=== PATIENT | female | born 1945 | race Caucasian/White ===

== ENCOUNTER 2024-03-25 17:23 | Inpatient (IN) ==
[2024-03-25 19:33] LABS: Urine Appearance Turbid; Urine Bilirubin Negative (Negative); Urine Blood Trace (Negative); Urine Color Yellow; Urine Glucose Negative (Negative); Urine Ketones Negative (Negative); Urine Nitrite 1+ (Negative); Urine Protein Negative (Negative); Urine Specific Gravity 1.015 (1.002-1.030); Urine Urobilinogen Negative (Negative)
[2024-03-25 19:36] LABS: Urine Bacteria 1+ /HPF (Absent); Urine Red Blood Cell Trace(0-2/hpf) /HPF (0-Trace); Urine Squamous Epithelial Cell Present /HPF (Absent); Urine White Blood Cell 3+(>20/hpf) /HPF (0-Trace)
[2024-03-25 20:06] LABS: ABS Basophils 0.1 10^3/uL (0.0-0.1); ABS Lymphocytes 0.4 10^3/uL (1.0-4.8); ABS Monocytes 0.5 10^3/uL (0.0-0.9); Eosinophil % 0.1 %; Hematocrit 30.4 % (35-45); Hemoglobin 10.2 g/dL (11.5-14.3); Lymphocyte % 5.5 %; Mean Corpuscular Hemoglobin 34.9 pg (27-33); Mean Corpuscular Hgb Conc 33.6 g/dL (31-36); Mean Corpuscular Volume 103.9 fL (80-97); Mean Platelet Volume 8.1 fL (7.5-11.2); Platelet Count 145 10^3/uL (150-450); Red Blood Count 2.93 10^6/uL (3.63-4.92); Red Cell Distribution Width 17.3 % (12-17); White Blood Count 6.9 10^3/uL (3.8-11.8)
[2024-03-25 20:22] LABS: Activated Partial Thrombo Time 27.7 seconds (26.0-38.0); INR 1.08 (0.83-1.13)
[2024-03-25 20:44] LABS: ALT 14 U/L (7-52); Albumin 3.4 g/dL (3.2-5.2); Albumin/Globulin Ratio 1.2 (1-3); Alkaline Phosphatase 90 U/L (35-149); Anion Gap 8 mmol/L (2-16); Blood Urea Nitrogen 16 mg/dL (6-24); CO2 Carbon Dioxide 26 mmol/L (22-32); Calcium 8.6 mg/dL (8.6-10.3); Chloride 104 mmol/L (101-111); Creatinine, Serum 0.83 mg/dL (0.51-0.95); Globulin 2.9 g/dL (2-4); Glucose 125 mg/dL (70-100); Sodium 138 mmol/L (135-145); Total Bilirubin 0.7 mg/dL (0.2-1.0); Total Protein 6.3 g/dL (6.4-8.9)
[2024-03-25] MEDS: Heparin 5000 UNITS/ML 1 mL VIAL IV SCH (21:02)
[2024-03-25] MEDS: Heparin DRIP 25,000 UNITS BAG 25,000 UNITS/250 ML BAG IV SCH (21:03)
[2024-03-25] MEDS: TEMOZOLOMIDE 250 MG PO ONE (23:00)
[2024-03-26] MEDS ORDERED: cefTRIAXone 1 gm/50 mL D5W 1 GM/50 ML BAG IV ONE (00:51)
[2024-03-26] MEDS: cefTRIAXone 1 gm/50 mL D5W 1 GM/50 ML BAG IV SCH (00:56)
[2024-03-26 04:32] LABS: ABS Lymphocytes 0.8 10^3/uL (1.0-4.8); ABS Monocytes 0.5 10^3/uL (0.0-0.9); ABS Neutrophils 4.9 10^3/uL (1.5-7.6); ABS Nucleated RBC 0.01 10^3/ul; Eosinophil % 0.6 %; Hematocrit 29.5 % (35-45); Hemoglobin 9.9 g/dL (11.5-14.3); Lymphocyte % 13.3 %; Mean Corpuscular Hemoglobin 34.6 pg (27-33); Mean Corpuscular Hgb Conc 33.6 g/dL (31-36); Mean Corpuscular Volume 103.1 fL (80-97); Mean Platelet Volume 8.2 fL (7.5-11.2); Nucleated Red Blood Cells % 0.2 %/100WBC (0.0-0.8); Platelet Count 147 10^3/uL (150-450); Red Blood Count 2.86 10^6/uL (3.63-4.92); Red Cell Distribution Width 17.4 % (12-17); White Blood Count 6.3 10^3/uL (3.8-11.8)
[2024-03-26 05:31] LABS: Calcium 8.5 mg/dL (8.6-10.3); Creatinine, Serum 0.81 mg/dL (0.51-0.95); Magnesium 1.8 mg/dL (1.9-2.7); Potassium 3.4 mmol/L (3.5-5.0); Potassium Redraw 3.4 mmol/L (3.5-5.0); eGFR CKD-EPI 75.2 (>60)
[2024-03-26] MEDS ORDERED: Potassium Chlor 20 meq TAB.ER PO SCH (09:00)
[2024-03-26] MEDS: CMCS: Solifenacin 5 mg TAB (NF) PO SCH (09:48)
[2024-03-26] MEDS: Fluticasone NASAL SPRAY 50MCG 16 gm SPRAY BTL INTRANASAL SCH (13:26)
[2024-03-26] MEDS: Polyethylene Glycol 3350 17 GM PACKET PO PRN (20:35)
[2024-03-27 07:49] LABS: ABS Eosinophils 0.1 10^3/uL (0.0-0.5); ABS Lymphocytes 0.9 10^3/uL (1.0-4.8); ABS Monocytes 0.4 10^3/uL (0.0-0.9); ABS Neutrophils 2.8 10^3/uL (1.5-7.6); Eosinophil % 1.8 %; Hemoglobin 8.9 g/dL (11.5-14.3); Mean Corpuscular Hemoglobin 35.1 pg (27-33); Mean Corpuscular Hgb Conc 34.2 g/dL (31-36); Mean Corpuscular Volume 102.6 fL (80-97); Mean Platelet Volume 7.5 fL (7.5-11.2); Platelet Count 174 10^3/uL (150-450); Red Blood Count 2.53 10^6/uL (3.63-4.92); Red Cell Distribution Width 16.8 % (12-17); White Blood Count 4.3 10^3/uL (3.8-11.8)
[2024-03-27] MEDS ORDERED: Lidocaine 1% VIAL 10 MG/ML 30 ML VIAL ONE ×2 (08:08→11:44)
[2024-03-27] MEDS ORDERED: Iohexol 350 (CONTRAST) 100 ML PAK IV ONE ×3 (08:09→12:00)
[2024-03-27] MEDS ORDERED: Heparin 2 UNITS/ML IVPREMIX 3,000 UNIT/1,500 ML BAG IV ONE ×2 (08:09→11:44)
[2024-03-27] MEDS ORDERED: fentaNYL 250 mcg/5 ml 50 MCG/ML 5 ml VIAL (250 MCG) ONE (08:11)
[2024-03-27] MEDS ORDERED: Heparin 1,000 UNIT/ML 10 ml (10,000 UNITS) CATHLAB/DIALYSIS ONE ×2 (08:11→13:38)
[2024-03-27] MEDS ORDERED: Midazolam 5 mg/5 ml VIAL 1 mg/ml 5 ml VIAL (5 mg) ONE (08:11)
[2024-03-27 08:42] LABS: Calcium 7.9 mg/dL (8.6-10.3); Creatinine, Serum 0.62 mg/dL (0.51-0.95); Magnesium 1.8 mg/dL (1.9-2.7); Potassium 3.5 mmol/L (3.5-5.0); eGFR CKD-EPI 92.2 (>60)
[2024-03-27 11:17] LABS: Hematocrit 26.4 % (35-45); Hemoglobin 8.3 g/dL (11.5-14.3); Mean Corpuscular Hgb Conc 31.6 g/dL (31-36); Platelet Count 137 10^3/uL (150-450); Red Blood Count 2.39 10^6/uL (3.63-4.92); Red Cell Distribution Width 18.4 % (12-17); White Blood Count 7.3 10^3/uL (3.8-11.8)
[2024-03-27 11:19] LABS: INR 1.23 (0.83-1.13)
[2024-03-27] MEDS: Iohexol 350 (CONTRAST) 500 ML MDV IV ONE (11:26)
[2024-03-27 11:38] LABS: High Sens Troponin Baseline 27 pg/mL (<15)
[2024-03-27 12:45] LABS: ALT 115 U/L (7-52); Albumin 2.3 g/dL (3.2-5.2); Albumin/Globulin Ratio 1.2 (1-3); Alkaline Phosphatase 73 U/L (35-149); Anion Gap 17 mmol/L (2-16); Blood Urea Nitrogen 12 mg/dL (6-24); CO2 Carbon Dioxide 15 mmol/L (22-32); Calcium 7.6 mg/dL (8.6-10.3); Chloride 106 mmol/L (101-111); Creatinine, Serum 0.84 mg/dL (0.51-0.95); Glucose 277 mg/dL (70-100); Sodium 138 mmol/L (135-145); Total Bilirubin 0.4 mg/dL (0.2-1.0); Total Protein 4.3 g/dL (6.4-8.9)
[2024-03-27 12:55] LABS: ABS Basophils 0.1 10^3/uL (0.0-0.1); ABS Eosinophils 0.1 10^3/uL (0.0-0.5); ABS Lymphocytes 4.4 10^3/uL (1.0-4.8); ABS Monocytes 0.3 10^3/uL (0.0-0.9); ABS Neutrophils 2.5 10^3/uL (1.5-7.6); ABS Nucleated RBC 0.07 10^3/ul; Acanthocytes 2+; Eosinophil % 0.8 %; Lymphocyte % 59.9 %; Macrocytosis 3+; Mean Corpuscular Volume 110.8 fL (80-97); Polychromasia 1+; Smudge Cells Present; Tear Drop Cells 1+
[2024-03-27] MEDS: VASOPRESSIN IVPREMIX BTL 40 UNIT/100 ML BTL IV SCH (13:45)
[2024-03-27] MEDS: PHENYLEPHRINE DRIP IVPREMIX 50 MG/250 ML BAG IV SCH (14:00)
[2024-03-27] MEDS ORDERED: Heparin 2 UNITS/ML IVPREMIX 1,000 UNIT/500 ML BAG IV ONE (14:04)
[2024-03-27] MEDS: Norepinephrine 4 MG/250mL D5W 4,000 MCG/250 ML BAG IV SCH (16:00)
[2024-03-27 16:29] LABS: ABS Lymphocytes 1.6 10^3/uL (1.0-4.8); ABS Monocytes 0.6 10^3/uL (0.0-0.9); ABS Neutrophils 9.7 10^3/uL (1.5-7.6); ABS Nucleated RBC 0.11 10^3/ul; Eosinophil % 0.2 %; Hematocrit 24.6 % (35-45); Hemoglobin 7.8 g/dL (11.5-14.3); Lymphocyte % 13.3 %; Mean Corpuscular Hemoglobin 33.7 pg (27-33); Mean Corpuscular Hgb Conc 31.9 g/dL (31-36); Mean Corpuscular Volume 105.7 fL (80-97); Mean Platelet Volume 7.7 fL (7.5-11.2); Nucleated Red Blood Cells % 0.9 %/100WBC (0.0-0.8); Platelet Count 120 10^3/uL (150-450); Red Blood Count 2.32 10^6/uL (3.63-4.92)
[2024-03-27] MEDS: VASOPRESSIN IVPREMIX BTL 40 UNIT/100 ML BTL IV ONE (16:37)
[2024-03-27] MEDS: Propofol 10 mg/ml 100 ML BTL 1,000 MG/100 ML BTL ONE (16:37)
[2024-03-27] MEDS: Phenylephrine IV 10 MG/ML 1 ml VIAL ONE (16:37)
[2024-03-27] MEDS: Propofol 10 mg/ml 100 ML BTL 0 MG/0 ML BTL ONE (16:37)
[2024-03-27] MEDS ORDERED: Acetaminophen IV 1 GM/100ML 1,000 MG/100 ML BAG IV PRN (16:37)
[2024-03-27] MEDS: Propofol 10 mg/ml 100 ML BTL 1,000 MG/100 ML BTL IV SCH (16:54)
[2024-03-27] MEDS ORDERED: Propofol 10 mg/ml 100 ML BTL 1,000 MG/100 ML BTL IV SCH (17:00)
[2024-03-27 17:10] LABS: PCO2 Arterial 29 mmHg (35-45); PO2 Arterial 215 mmHg (80-100)
[2024-03-27] MEDS: Chlorhexidine MOUTHWASH 0.12% 15 ML UDC SWISH SPIT SCH (17:43)
[2024-03-27] MEDS: Sodium Bicarbonate 8.4% SYR 50 ml SYRINGE ONE (17:46)
[2024-03-27] MEDS: Sodium Bicarbonate 8.4% SYR 50 ml SYRINGE IV ONE (17:48)
[2024-03-27] MEDS: Sodium Bicarbonate 8.4% VIAL 1 MEQ/ML 50 ml VIAL (50 meq) ONE (17:49)
[2024-03-27] MEDS: Norepinephrine *QUAD STRENGTH* 16 mg/250 mL NS PREMIX (ICU ONLY) IV SCH (18:36)
[2024-03-27 18:40] LABS: High Sensitivity Troponin 1 Hr 2842 pg/mL (<15)
[2024-03-27 19:09] LABS: ALT 82 U/L (7-52); AST 221 U/L (13-39); Albumin < 1.7 g/dL (3.2-5.2); Albumin/Globulin Ratio 1.3 (1-3); Alkaline Phosphatase 61 U/L (35-149); Anion Gap 16 mmol/L (2-16); Blood Urea Nitrogen 13 mg/dL (6-24); CO2 Carbon Dioxide 33 mmol/L (22-32); Calcium 6.3 mg/dL (8.6-10.3); Chloride 100 mmol/L (101-111); Creatinine, Serum 0.98 mg/dL (0.51-0.95); Globulin 1.3 g/dL (2-4); Glucose 428 mg/dL (70-100); Potassium 3.7 mmol/L (3.5-5.0); Sodium 149 mmol/L (135-145); Total Bilirubin 0.5 mg/dL (0.2-1.0); Total Protein < 3.0 g/dL (6.4-8.9); eGFR CKD-EPI 59.8 (>60)
[2024-03-27] MEDS: Hydrocortisone INJ 100 MG/2ML 2 ML VIAL IV SCH (19:29)
[2024-03-27] MEDS ORDERED: Hydrocortisone INJ 100 MG/2ML 2 ML VIAL IV SCH (20:00)
[2024-03-27 20:51] LABS: ABS Eosinophils 0.1 10^3/uL (0.0-0.5); ABS Lymphocytes 1.2 10^3/uL (1.0-4.8); ABS Monocytes 0.6 10^3/uL (0.0-0.9); ABS Neutrophils 11.5 10^3/uL (1.5-7.6); ABS Nucleated RBC 0.11 10^3/ul; Eosinophil % 0.7 %; Hematocrit 32.2 % (35-45); Hemoglobin 11.2 g/dL (11.5-14.3); Mean Corpuscular Hemoglobin 33.4 pg (27-33); Mean Corpuscular Volume 95.6 fL (80-97); Mean Platelet Volume 7.8 fL (7.5-11.2); Nucleated Red Blood Cells % 0.8 %/100WBC (0.0-0.8); Platelet Count 112 10^3/uL (150-450); Red Blood Count 3.36 10^6/uL (3.63-4.92); Red Cell Distribution Width 17.3 % (12-17); White Blood Count 13.5 10^3/uL (3.8-11.8)
[2024-03-27 20:55] LABS: PCO2 Arterial 23 mmHg (35-45); PO2 Arterial 168 mmHg (80-100)
[2024-03-27 21:48] LABS: ALT 344 U/L (7-52); Albumin 2.2 g/dL (3.2-5.2); Albumin/Globulin Ratio 1.2 (1-3); Alkaline Phosphatase 81 U/L (35-149); Anion Gap 22 mmol/L (2-16); Blood Urea Nitrogen 15 mg/dL (6-24); CO2 Carbon Dioxide 13 mmol/L (22-32); Calcium 6.9 mg/dL (8.6-10.3); Chloride 104 mmol/L (101-111); Creatinine, Serum 1.11 mg/dL (0.51-0.95); Globulin 1.9 g/dL (2-4); Glucose 369 mg/dL (70-100); Magnesium 1.8 mg/dL (1.9-2.7); Sodium 139 mmol/L (135-145); Total Bilirubin 1.2 mg/dL (0.2-1.0); Total Protein 4.1 g/dL (6.4-8.9); eGFR CKD-EPI 51.5 (>60)
[2024-03-27] MEDS: CALCIUM GLUCONATE 1GM/50ML NS 1 GM/50 ML BAG IV ONE (22:06)
[2024-03-27] MEDS: Pantoprazole VIAL 40 MG VIAL IV SCH (22:21)
[2024-03-27] MEDS: Magnesium Sulfate 2 gm BAG 2 GM/50 ML BAG IVPB ONE (22:21)
[2024-03-27] MEDS: Albumin Human 25% 25 GM/100 ML BTL IV ONE (22:21)
[2024-03-27] MEDS: Norepinephrine 16 MG/250mL NS 16,000 MCG/250 ML BAG IV SCH (22:30)
[2024-03-27 22:53] LABS: High Sensitivity Troponin 3 Hr 2310 pg/mL (<15)
[2024-03-27 22:58] LABS: Resp Rate 15
[2024-03-27 23:00] LABS: PO2 Arterial 165 mmHg (80-100)
[2024-03-27 23:02] LABS: PCO2 Arterial <20 mmHg (35-45)
[2024-03-27 23:31] LABS: Potassium Redraw 3.1 mmol/L (3.5-5.0)
[2024-03-27] MEDS ORDERED: Dextrose 50% Syringe 50 ml 25 GM/50 ML SYRINGE IV PUSH PRN (23:39)
[2024-03-28 00:26] LABS: Lipase 49 U/L (11.0-82.0)
[2024-03-28] MEDS: KCL 20 MEQ/100 ML IVPREMIX 20 MEQ/100 ML BAG IV SCH (00:55)
[2024-03-28] MEDS ORDERED: Zosyn per Pharmacy NOTE FOLLOW UP SCH (02:00)
[2024-03-28] MEDS: Piperacillin/Tazobac 3.375 BAG 3.375 GM/100 ML BAG IV ONE (02:27)
[2024-03-28] MEDS: Iodixanol (CONTRAST) 320 MG/ML 100 ML SDV IV ONE (03:23)
[2024-03-28] MEDS: fentaNYL 100 mcg/2 ml 50 MCG/ML VIAL ONE (03:47)
[2024-03-28] MEDS: fentaNYL 100 mcg/2 ml 50 MCG/ML VIAL IV SLOW PU ONE (03:47)
[2024-03-28 04:28] LABS: Platelet Count 81 10^3/ul (150-450)
[2024-03-28 04:48] LABS: ABS Eosinophils 0.1 10^3/uL (0.0-0.5); ABS Lymphocytes 0.9 10^3/uL (1.0-4.8); ABS Monocytes 0.4 10^3/uL (0.0-0.9); ABS Nucleated RBC 0.05 10^3/ul; Eosinophil % 0.6 %; Hematocrit 23.1 % (35-45); Hemoglobin 8.3 g/dL (11.5-14.3); Lymphocyte % 8.4 %; Mean Corpuscular Hemoglobin 33.5 pg (27-33); Mean Corpuscular Hgb Conc 36.1 g/dL (31-36); Mean Platelet Volume 8.5 fL (7.5-11.2); Nucleated Red Blood Cells % 0.5 %/100WBC (0.0-0.8); Platelet Count 83 10^3/uL (150-450); Red Blood Count 2.49 10^6/uL (3.63-4.92); Red Cell Distribution Width 17.5 % (12-17); White Blood Count 10.3 10^3/uL (3.8-11.8)
[2024-03-28 05:16] LABS: Calcium 7.5 mg/dL (8.6-10.3); Creatinine, Serum 1.09 mg/dL (0.51-0.95); Potassium 3.9 mmol/L (3.5-5.0); eGFR CKD-EPI 52.7 (>60)
[2024-03-28 05:36] LABS: Albumin 2.9 g/dL (3.2-5.2); Albumin/Globulin Ratio 1.8 (1-3); Globulin 1.6 g/dL (2-4); Magnesium 2.4 mg/dL (1.9-2.7); Phosphorus 3.6 mg/dL (2.5-5.0); Total Bilirubin 0.9 mg/dL (0.2-1.0); Total Protein 4.5 g/dL (6.4-8.9)
[2024-03-28 05:43] LABS: Schistocytes ABSENT
[2024-03-28] MEDS: ZOSYN 3.375 GM Q8H per EXTENDED INFUSION IV SCH (07:15)
[2024-03-28 11:35] LABS: ABS Eosinophils 0.1 10^3/uL (0.0-0.5); ABS Lymphocytes 0.9 10^3/uL (1.0-4.8); ABS Monocytes 0.3 10^3/uL (0.0-0.9); ABS Neutrophils 6.8 10^3/uL (1.5-7.6); Eosinophil % 0.9 %; Hematocrit 24.1 % (35-45); Hemoglobin 8.8 g/dL (11.5-14.3); Lymphocyte % 10.6 %; Mean Corpuscular Hemoglobin 33.3 pg (27-33); Mean Corpuscular Hgb Conc 36.4 g/dL (31-36); Mean Corpuscular Volume 91.5 fL (80-97); Mean Platelet Volume 9.1 fL (7.5-11.2); Nucleated Red Blood Cells % 1.2 %/100WBC (0.0-0.8); Platelet Count 105 10^3/uL (150-450); Red Blood Count 2.64 10^6/uL (3.63-4.92); Red Cell Distribution Width 17.7 % (12-17)
[2024-03-28 12:58] LABS: Activated Partial Thrombo Time 61.7 seconds (26.0-38.0); INR 1.35 (0.83-1.13)
[2024-03-28 13:03] LABS: PCO2 Arterial 24 mmHg (35-45); PO2 Arterial 151 mmHg (80-100)
[2024-03-28 15:20] LABS: Calcium 7.8 mg/dL (8.6-10.3); Creatinine, Serum 1.05 mg/dL (0.51-0.95); Globulin 1.5 g/dL (2-4); Total Bilirubin 0.9 mg/dL (0.2-1.0); Total Protein 4.5 g/dL (6.4-8.9); eGFR CKD-EPI 55.1 (>60)
[2024-03-28 19:39] LABS: Ferritin 8081.6 ng/mL (11-307)
[2024-03-28] MEDS: Norepinephrine 4 MG/250mL NS 4,000 MCG/250 ML BAG IV SCH (20:07)
[2024-03-28] MEDS: D5LR 1000 ml BAG 1,000 ML IV SCH (20:07)
[2024-03-28] MEDS: cefTRIAXone 1 gm/50 mL D5W 1 GM/50 ML BAG IV SCH (21:20)
[2024-03-28] MEDS: Norepinephrine 4 MG/250mL D5W 4,000 MCG/250 ML BAG IV SCH (23:48)
[2024-03-29 04:31] LABS: Hemoglobin 7.2 g/dL (11.5-14.3); Mean Corpuscular Hemoglobin 33.1 pg (27-33); Red Blood Count 2.17 10^6/uL (3.63-4.92); Red Cell Distribution Width 17.9 % (12-17); White Blood Count 11.1 10^3/uL (3.8-11.8)
[2024-03-29 04:43] LABS: Calcium 7.6 mg/dL (8.6-10.3); Creatinine, Serum 0.95 mg/dL (0.51-0.95); Potassium 3.8 mmol/L (3.5-5.0); eGFR CKD-EPI 62.1 (>60)
[2024-03-29 04:47] LABS: Albumin 2.6 g/dL (3.2-5.2); Albumin/Globulin Ratio 1.7 (1-3); Globulin 1.5 g/dL (2-4); Magnesium 2.4 mg/dL (1.9-2.7); Phosphorus 3.9 mg/dL (2.5-5.0); Total Bilirubin 0.7 mg/dL (0.2-1.0); Total Protein 4.1 g/dL (6.4-8.9)
[2024-03-29] MEDS: KCL 20 MEQ/100 ML IVPREMIX 20 MEQ/100 ML BAG IV SCH (08:03)
[2024-03-29 08:54] LABS: ABS Eosinophils 0.1 10^3/uL (0.0-0.5); ABS Lymphocytes 0.5 10^3/uL (1.0-4.8); ABS Monocytes 0.2 10^3/uL (0.0-0.9); ABS Neutrophils 10.3 10^3/uL (1.5-7.6); ABS Nucleated RBC 0.09 10^3/ul; Eosinophil % 0.5 %; Lymphocyte % 4.8 %; Mean Platelet Volume 9.5 fL (7.5-11.2); Nucleated Red Blood Cells % 0.8 %/100WBC (0.0-0.8); Platelet Count 89 10^3/uL (150-450)
[2024-03-29] MEDS: Lactated Ringers 1000 ml BAG 500 ML IV ONE (09:23)
[2024-03-29 09:45] LABS: Activated Partial Thrombo Time 57.2 seconds (26.0-38.0); INR 1.29 (0.83-1.13)
[2024-03-29 09:51] LABS: Platelet Count 90 10^3/ul (150-450)
[2024-03-29] MEDS: Norepinephrine 4 MG/250mL D5W 4,000 MCG/250 ML BAG IV SCH (09:52)
[2024-03-29] MEDS ORDERED: EPINEPHrine SYR 0.1MG/ML 10 ml SYRINGE IV ONE (10:14)
[2024-03-29] MEDS ORDERED: Flumazenil 0.5 mg/5 ml 0.1 MG/ML 5 ml VIAL ONE (10:14)
[2024-03-29] MEDS ORDERED: Naloxone 4 mg VIAL 0.4 MG/ML 10 ml VIAL (4 mg) ONE (10:14)
[2024-03-29 10:16] LABS: Schistocytes ABSENT
[2024-03-29] MEDS: Morphine 2 MG/ML SYRINGE IV PRN (17:09)
[2024-03-29] MEDS ORDERED: Acetaminophen IV 1 GM/100ML 1,000 MG/100 ML BAG IV PRN (17:36)
[2024-03-29] MEDS: VASOPRESSIN IVPREMIX BTL 40 UNIT/100 ML BTL IV ONE (20:49)
[2024-03-29] MEDS: Dexmedetomidine 1,000 MCG in NS 0.9% 250 ml 240 ML IV SCH (21:17)
[2024-03-30 04:41] LABS: Hematocrit 19.1 % (35-45); Hemoglobin 6.7 g/dL (11.5-14.3); Mean Corpuscular Hemoglobin 33.1 pg (27-33); Mean Corpuscular Hgb Conc 35.2 g/dL (31-36); Mean Corpuscular Volume 94.1 fL (80-97); Red Blood Count 2.03 10^6/uL (3.63-4.92); White Blood Count 8.5 10^3/uL (3.8-11.8)
[2024-03-30 05:03] LABS: Calcium 7.4 mg/dL (8.6-10.3); Creatinine, Serum 0.96 mg/dL (0.51-0.95); Potassium 4.5 mmol/L (3.5-5.0); eGFR CKD-EPI 61.3 (>60)
[2024-03-30 05:17] LABS: Albumin 2.4 g/dL (3.2-5.2); Albumin/Globulin Ratio 1.4 (1-3); Globulin 1.7 g/dL (2-4); Magnesium 2.4 mg/dL (1.9-2.7); Phosphorus 3.3 mg/dL (2.5-5.0); Total Bilirubin 0.5 mg/dL (0.2-1.0); Total Protein 4.1 g/dL (6.4-8.9)
[2024-03-30 08:01] LABS: Mean Platelet Volume 9.7 fL (7.5-11.2); Platelet Count 76 10^3/uL (150-450)
[2024-03-30 08:19] LABS: ABS Lymphocytes 0.5 10^3/uL (1.0-4.8); ABS Monocytes 0.3 10^3/uL (0.0-0.9); ABS Neutrophils 7.7 10^3/uL (1.5-7.6); ABS Nucleated RBC 0.22 10^3/ul; Anisocytosis 1+; Dohle Bodies Present; Eosinophil % 0.2 %; Lymphocyte % 5.6 %; Nucleated Red Blood Cells % 2.6 %/100WBC (0.0-0.8); Polychromasia 1+
[2024-03-30 10:30] LABS: PCO2 Arterial 29 mmHg (35-45); PO2 Arterial 104 mmHg (80-100)
[2024-03-30] MEDS: Lactated Ringers 1000 ml BAG 1,000 ML IV ONE (14:59)
[2024-03-30 23:54] LABS: Hematocrit 26.3 % (35-45); Hemoglobin 9.2 g/dL (11.5-14.3)
[2024-03-31 04:55] LABS: Mean Corpuscular Hemoglobin 32.5 pg (27-33); Mean Corpuscular Hgb Conc 34.6 g/dL (31-36); Mean Platelet Volume 9.3 fL (7.5-11.2); Platelet Count 69 10^3/uL (150-450); Red Blood Count 2.76 10^6/uL (3.63-4.92); Red Cell Distribution Width 17.7 % (12-17); White Blood Count 13.3 10^3/uL (3.8-11.8)
[2024-03-31 05:22] LABS: Albumin 2.8 g/dL (3.2-5.2); Albumin/Globulin Ratio 1.2 (1-3); Calcium 7.7 mg/dL (8.6-10.3); Creatinine, Serum 0.77 mg/dL (0.51-0.95); Globulin 2.3 g/dL (2-4); Magnesium 2.5 mg/dL (1.9-2.7); Phosphorus 2.8 mg/dL (2.5-5.0); Total Bilirubin 0.5 mg/dL (0.2-1.0); Total Protein 5.1 g/dL (6.4-8.9); eGFR CKD-EPI 79.9 (>60)
[2024-03-31 05:35] LABS: ABS Lymphocytes 0.7 10^3/uL (1.0-4.8); ABS Monocytes 0.6 10^3/uL (0.0-0.9); ABS Neutrophils 12.1 10^3/uL (1.5-7.6); ABS Nucleated RBC 0.48 10^3/ul; Lymphocyte % 4.9 %; Nucleated Red Blood Cells % 3.6 %/100WBC (0.0-0.8)
[2024-03-31 05:36] LABS: Anisocytosis 1+; Macrocytosis 1+; Polychromasia 1+
[2024-03-31] MEDS: CALCIUM GLUCONATE 1GM/50ML NS 1 GM/50 ML BAG IV ONE (05:39)
[2024-03-31] MEDS ORDERED: EPINEPHrine,Rac 2.25% NEB.SOL 0.5 ML INH PRN (08:31)
[2024-03-31] MEDS: Hydrocortisone INJ 100 MG/2ML 2 ML VIAL IV SCH (09:50)
[2024-03-31] MEDS: Labetalol IV 5 MG/ML 20 ml VIAL IV PUSH PRN (10:12)
[2024-03-31] MEDS: niCARdipine 0.1MG/ML IVPREMIX 20 MG/200 ML BAG IV SCH (11:01)
[2024-03-31] MEDS: Acetaminophen IV 1 GM/100ML 1,000 MG/100 ML BAG IV PRN (16:41)
[2024-03-31 21:22] LABS: PCO2 Arterial 31 mmHg (35-45); PO2 Arterial 96 mmHg (80-100)
[2024-03-31] MEDS: OLANZapine 5 mg TAB *ODT PO ONE (23:14)
[2024-04-01 04:31] LABS: Hematocrit 21.9 % (35-45); Hemoglobin 7.7 g/dL (11.5-14.3); Mean Corpuscular Hemoglobin 33.5 pg (27-33); Mean Corpuscular Hgb Conc 35.1 g/dL (31-36); Mean Corpuscular Volume 95.3 fL (80-97); Mean Platelet Volume 9.1 fL (7.5-11.2); Platelet Count 62 10^3/uL (150-450); Red Cell Distribution Width 17.4 % (12-17); White Blood Count 8.1 10^3/uL (3.8-11.8)
[2024-04-01] MEDS: niCARdipine 0.1MG/ML IVPREMIX 20 MG/200 ML BAG IV SCH ×2 (04:34→18:06)
[2024-04-01 04:55] LABS: ABS Lymphocytes 0.5 10^3/uL (1.0-4.8); ABS Monocytes 0.4 10^3/uL (0.0-0.9); ABS Neutrophils 7.1 10^3/uL (1.5-7.6); ABS Nucleated RBC 0.24 10^3/ul; Eosinophil % 0.2 %; Lymphocyte % 6.6 %
[2024-04-01 04:56] LABS: Anisocytosis 1+; Polychromasia 1+
[2024-04-01 06:13] LABS: Albumin 2.4 g/dL (3.2-5.2); Albumin/Globulin Ratio 1.3 (1-3); Calcium 7.4 mg/dL (8.6-10.3); Creatinine, Serum 0.54 mg/dL (0.51-0.95); Globulin 1.8 g/dL (2-4); Magnesium 2.3 mg/dL (1.9-2.7); Phosphorus 3.8 mg/dL (2.5-5.0); Potassium 3.3 mmol/L (3.5-5.0); Total Bilirubin 0.6 mg/dL (0.2-1.0); Total Protein 4.2 g/dL (6.4-8.9); eGFR CKD-EPI 95.4 (>60)
[2024-04-01] MEDS: KCL 20 MEQ/100 ML IVPREMIX 20 MEQ/100 ML BAG IV SCH (08:01)
[2024-04-01] MEDS ORDERED: Lorazepam PYXIS KEY PRN (16:56)
[2024-04-01] MEDS: LORazepam 2 mg VIAL 1 ml IV PUSH ONE (17:30)
[2024-04-02 04:54] LABS: Hematocrit 26.3 % (35-45); Hemoglobin 9.1 g/dL (11.5-14.3); Mean Corpuscular Hemoglobin 32.9 pg (27-33); Mean Corpuscular Hgb Conc 34.4 g/dL (31-36); Mean Corpuscular Volume 95.8 fL (80-97); Mean Platelet Volume 9.9 fL (7.5-11.2); Platelet Count 82 10^3/uL (150-450); Red Blood Count 2.75 10^6/uL (3.63-4.92); Red Cell Distribution Width 17.3 % (12-17); White Blood Count 8.1 10^3/uL (3.8-11.8)
[2024-04-02 05:17] LABS: Albumin 2.9 g/dL (3.2-5.2); Albumin/Globulin Ratio 1.5 (1-3); Calcium 7.8 mg/dL (8.6-10.3); Creatinine, Serum 0.48 mg/dL (0.51-0.95); Magnesium 2.4 mg/dL (1.9-2.7); Potassium 3.3 mmol/L (3.5-5.0); Total Bilirubin 0.8 mg/dL (0.2-1.0); Total Protein 4.9 g/dL (6.4-8.9); eGFR CKD-EPI 98.1 (>60)
[2024-04-02 05:46] LABS: ABS Lymphocytes 0.5 10^3/uL (1.0-4.8); ABS Monocytes 0.6 10^3/uL (0.0-0.9); ABS Neutrophils 7.1 10^3/uL (1.5-7.6); ABS Nucleated RBC 0.16 10^3/ul; Anisocytosis 1+; Lymphocyte % 5.6 %; Polychromasia 1+
[2024-04-02] MEDS: KCL 20 MEQ/100 ML IVPREMIX 20 MEQ/100 ML BAG IV SCH (08:59)
[2024-04-02] MEDS: niCARdipine 0.1MG/ML IVPREMIX 20 MG/200 ML BAG IV SCH (09:49)
[2024-04-02] MEDS: niCARdipine 0.1MG/ML IVPREMIX 20 MG/200 ML BAG IV ONE (12:11)
[2024-04-02] MEDS: Hydrocortisone INJ 100 MG/2ML 2 ML VIAL IV SCH (21:22)
[2024-04-02 23:00] LABS: HIT ELISA < 0.050 OD (<0.400); Heparin PF4 Antibody Interp Negative (Negative)
[2024-04-03 06:15] LABS: ABS Lymphocytes 0.3 10^3/uL (1.0-4.8); ABS Monocytes 0.4 10^3/uL (0.0-0.9); ABS Neutrophils 5.6 10^3/uL (1.5-7.6); ABS Nucleated RBC 0.08 10^3/ul; Eosinophil % 0.1 %; Hematocrit 22.9 % (35-45); Hemoglobin 7.8 g/dL (11.5-14.3); Lymphocyte % 4.8 %; Mean Corpuscular Hgb Conc 33.9 g/dL (31-36); Mean Corpuscular Volume 97.1 fL (80-97); Mean Platelet Volume 9.6 fL (7.5-11.2); Nucleated Red Blood Cells % 1.3 %/100WBC (0.0-0.8); Platelet Count 87 10^3/uL (150-450); Red Blood Count 2.36 10^6/uL (3.63-4.92); Red Cell Distribution Width 17.5 % (12-17); White Blood Count 6.3 10^3/uL (3.8-11.8)
[2024-04-03 06:59] LABS: Albumin 2.5 g/dL (3.2-5.2); Albumin/Globulin Ratio 1.3 (1-3); Calcium 7.5 mg/dL (8.6-10.3); Creatinine, Serum 0.48 mg/dL (0.51-0.95); Globulin 1.9 g/dL (2-4); Magnesium 2.3 mg/dL (1.9-2.7); Potassium 3.6 mmol/L (3.5-5.0); Total Bilirubin 0.7 mg/dL (0.2-1.0); Total Protein 4.4 g/dL (6.4-8.9); eGFR CKD-EPI 98.1 (>60)
[2024-04-03] MEDS: Potassium EFFERVES 25 meq TAB PO ONE (09:15)
[2024-04-03] MEDS: NS 0.9% 500 ml BAG 500 ML IV SCH (21:14)
[2024-04-04 06:26] LABS: Albumin 2.8 g/dL (3.2-5.2); Albumin/Globulin Ratio 1.3 (1-3); Creatinine, Serum 0.59 mg/dL (0.51-0.95); Globulin 2.1 g/dL (2-4); Magnesium 2.3 mg/dL (1.9-2.7); Potassium 3.6 mmol/L (3.5-5.0); Total Bilirubin 0.8 mg/dL (0.2-1.0); Total Protein 4.9 g/dL (6.4-8.9); eGFR CKD-EPI 93.3 (>60)
[2024-04-04 07:02] LABS: ABS Eosinophils 0.1 10^3/uL (0.0-0.5); ABS Lymphocytes 0.5 10^3/uL (1.0-4.8); ABS Monocytes 0.4 10^3/uL (0.0-0.9); ABS Neutrophils 6.7 10^3/uL (1.5-7.6); ABS Nucleated RBC 0.07 10^3/ul; Hematocrit 27.6 % (35-45); Hemoglobin 8.8 g/dL (11.5-14.3); Lymphocyte % 6.8 %; Mean Corpuscular Hemoglobin 32.7 pg (27-33); Mean Corpuscular Hgb Conc 32.1 g/dL (31-36); Platelet Count 113 10^3/uL (150-450); Red Cell Distribution Width 19.4 % (12-17); White Blood Count 7.6 10^3/uL (3.8-11.8)
[2024-04-04] MEDS ORDERED: Calcium Carb (TUMS) 500 mg CHEW TAB PO PRN (09:46)
[2024-04-05 02:20] LABS: Urine Appearance Extra Turbid; Urine Color Red; Urine Specific Gravity 1.015 (1.002-1.030)
[2024-04-05 03:51] LABS: Urine Bacteria Absent /HPF (Absent); Urine Red Blood Cell 3+(>10/hpf) /HPF (0-Trace); Urine White Blood Cell 3+(>20/hpf) /HPF (0-Trace)
[2024-04-05 05:08] LABS: ABS Eosinophils 0.1 10^3/uL (0.0-0.5); ABS Lymphocytes 0.5 10^3/uL (1.0-4.8); ABS Monocytes 0.4 10^3/uL (0.0-0.9); ABS Neutrophils 6.6 10^3/uL (1.5-7.6); ABS Nucleated RBC 0.04 10^3/ul; Eosinophil % 1.7 %; Hematocrit 24.5 % (35-45); Hemoglobin 8.3 g/dL (11.5-14.3); Lymphocyte % 6.6 %; Mean Corpuscular Hemoglobin 33.2 pg (27-33); Mean Corpuscular Hgb Conc 33.7 g/dL (31-36); Mean Corpuscular Volume 98.4 fL (80-97); Mean Platelet Volume 9.9 fL (7.5-11.2); Nucleated Red Blood Cells % 0.6 %/100WBC (0.0-0.8); Platelet Count 126 10^3/uL (150-450); Red Blood Count 2.49 10^6/uL (3.63-4.92); White Blood Count 7.6 10^3/uL (3.8-11.8)
[2024-04-05 05:34] LABS: Albumin 2.5 g/dL (3.2-5.2); Albumin/Globulin Ratio 1.3 (1-3); Calcium 7.7 mg/dL (8.6-10.3); Creatinine, Serum 0.55 mg/dL (0.51-0.95); Magnesium 2.1 mg/dL (1.9-2.7); Potassium 3.5 mmol/L (3.5-5.0); Total Bilirubin 0.6 mg/dL (0.2-1.0); Total Protein 4.5 g/dL (6.4-8.9); eGFR CKD-EPI 94.9 (>60)
[2024-04-06 05:56] LABS: ABS Eosinophils 0.1 10^3/uL (0.0-0.5); ABS Lymphocytes 0.5 10^3/uL (1.0-4.8); ABS Monocytes 0.4 10^3/uL (0.0-0.9); ABS Neutrophils 5.4 10^3/uL (1.5-7.6); ABS Nucleated RBC 0.02 10^3/ul; Eosinophil % 1.2 %; Hematocrit 22.7 % (35-45); Hemoglobin 7.7 g/dL (11.5-14.3); Lymphocyte % 7.3 %; Mean Corpuscular Hemoglobin 33.4 pg (27-33); Mean Corpuscular Hgb Conc 33.9 g/dL (31-36); Mean Corpuscular Volume 98.7 fL (80-97); Mean Platelet Volume 8.9 fL (7.5-11.2); Nucleated Red Blood Cells % 0.3 %/100WBC (0.0-0.8); Platelet Count 136 10^3/uL (150-450); Red Cell Distribution Width 18.8 % (12-17); White Blood Count 6.4 10^3/uL (3.8-11.8)
[2024-04-06 06:39] LABS: Calcium 7.5 mg/dL (8.6-10.3); Creatinine, Serum 0.55 mg/dL (0.51-0.95); Potassium 3.7 mmol/L (3.5-5.0); eGFR CKD-EPI 94.9 (>60)
[2024-04-06] MEDS: Polyethylene Glycol 3350 17 GM PACKET PO SCH (09:29)
[2024-04-06 16:29] LABS: Folate 8.85 ng/mL (5.90-24.80)
[2024-04-07 00:55] LABS: High Sensitivity Troponin 1 Hr 18 pg/mL (<15)
[2024-04-07 06:05] LABS: ABS Eosinophils 0.1 10^3/uL (0.0-0.5); ABS Lymphocytes 0.4 10^3/uL (1.0-4.8); ABS Monocytes 0.4 10^3/uL (0.0-0.9); ABS Neutrophils 5.1 10^3/uL (1.5-7.6); ABS Nucleated RBC 0.01 10^3/ul; Hematocrit 24.1 % (35-45); Lymphocyte % 7.1 %; Mean Corpuscular Hemoglobin 33.2 pg (27-33); Mean Corpuscular Hgb Conc 33.3 g/dL (31-36); Mean Corpuscular Volume 99.6 fL (80-97); Mean Platelet Volume 9.1 fL (7.5-11.2); Nucleated Red Blood Cells % 0.1 %/100WBC (0.0-0.8); Platelet Count 161 10^3/uL (150-450); Red Blood Count 2.42 10^6/uL (3.63-4.92); Red Cell Distribution Width 19.6 % (12-17)
[2024-04-07 10:37] VITALS: BP 143/74
== END 2024-04-07 11:00 | DRG 270 ==
LOC: ED 17:23 → MED 17:23 → EDHOLD 17:23 → SUATTDRO 20:11 → MED 22:27 → ICU 03-27 10:34 → MEDTELE 04-03 22:40
PROVIDERS: ADMIT Student in an Organized Health Care Education/Training Program; ATTEND Hospitalist

== ENCOUNTER 2024-04-05 07:09 | Inpatient (IN) ==
[2024-04-07] MEDS ORDERED: Al Hydrox/Mg Hydrox/Simet LIQ 30 ML UDC PO PRN (09:45)
[2024-04-07] MEDS ORDERED: Senna TAB 8.6 mg TAB PO PRN (09:45)
[2024-04-07] MEDS ORDERED: Calcium Carb (TUMS) 500 mg CHEW TAB PO PRN (10:00)
[2024-04-07] MEDS: Lidocaine PATCH 5% PATCH TRANSDERM SCH (14:16)
[2024-04-07 14:24] LABS: Urine Appearance Turbid; Urine Bilirubin Negative (Negative); Urine Blood 3+ (Negative); Urine Color Yellow; Urine Glucose Negative (Negative); Urine Ketones Negative (Negative); Urine Nitrite Negative (Negative); Urine Protein 1+ (>=30 mg/dL) (Negative); Urine Specific Gravity 1.016 (1.002-1.030); Urine Urobilinogen 3+ (Negative)
[2024-04-07 14:34] LABS: Urine Bacteria Absent /HPF (Absent); Urine Red Blood Cell 3+(>10/hpf) /HPF (0-Trace); Urine White Blood Cell 2+(11-20/hpf) /HPF (0-Trace)
[2024-04-08 06:24] LABS: ABS Eosinophils 0.1 10^3/uL (0.0-0.5); ABS Lymphocytes 0.4 10^3/uL (1.0-4.8); ABS Monocytes 0.5 10^3/uL (0.0-0.9); ABS Neutrophils 3.6 10^3/uL (1.5-7.6); Eosinophil % 1.3 %; Hematocrit 23.4 % (35-45); Hemoglobin 7.9 g/dL (11.5-14.3); Lymphocyte % 9.7 %; Mean Corpuscular Hemoglobin 33.4 pg (27-33); Mean Corpuscular Hgb Conc 33.7 g/dL (31-36); Mean Corpuscular Volume 98.9 fL (80-97); Mean Platelet Volume 8.4 fL (7.5-11.2); Nucleated Red Blood Cells % 0.1 %/100WBC (0.0-0.8); Platelet Count 170 10^3/uL (150-450); Red Blood Count 2.37 10^6/uL (3.63-4.92); Red Cell Distribution Width 19.1 % (12-17); White Blood Count 4.6 10^3/uL (3.8-11.8)
[2024-04-08 07:24] LABS: Albumin 2.3 g/dL (3.2-5.2); Albumin/Globulin Ratio 1.1 (1-3); Calcium 7.5 mg/dL (8.6-10.3); Creatinine, Serum 0.47 mg/dL (0.51-0.95); Globulin 2.1 g/dL (2-4); Potassium 3.6 mmol/L (3.5-5.0); Total Bilirubin 0.5 mg/dL (0.2-1.0); Total Protein 4.4 g/dL (6.4-8.9); eGFR CKD-EPI 98.6 (>60)
[2024-04-08] MEDS: Polyethylene Glycol 3350 17 GM PACKET PO SCH (11:06)
[2024-04-10 06:45] LABS: ABS Lymphocytes 0.4 10^3/uL (1.0-4.8); ABS Monocytes 0.4 10^3/uL (0.0-0.9); ABS Neutrophils 2.7 10^3/uL (1.5-7.6); ABS Nucleated RBC 0.01 10^3/ul; Eosinophil % 0.8 %; Hematocrit 24.4 % (35-45); Hemoglobin 8.1 g/dL (11.5-14.3); Lymphocyte % 11.1 %; Mean Corpuscular Hemoglobin 33.3 pg (27-33); Mean Corpuscular Hgb Conc 33.4 g/dL (31-36); Mean Corpuscular Volume 99.6 fL (80-97); Nucleated Red Blood Cells % 0.2 %/100WBC (0.0-0.8); Platelet Count 166 10^3/uL (150-450); Red Blood Count 2.45 10^6/uL (3.63-4.92); Red Cell Distribution Width 19.9 % (12-17); White Blood Count 3.6 10^3/uL (3.8-11.8)
[2024-04-15 06:37] LABS: Albumin 2.9 g/dL (3.2-5.2); Albumin/Globulin Ratio 1.1 (1-3); Calcium 8.2 mg/dL (8.6-10.3); Creatinine, Serum 0.49 mg/dL (0.51-0.95); Globulin 2.7 g/dL (2-4); Potassium 2.9 mmol/L (3.5-5.0); Total Bilirubin 0.5 mg/dL (0.2-1.0); Total Protein 5.6 g/dL (6.4-8.9); eGFR CKD-EPI 97.6 (>60)
[2024-04-15 08:02] LABS: ABS Eosinophils 0.1 10^3/uL (0.0-0.5); ABS Lymphocytes 0.6 10^3/uL (1.0-4.8); ABS Monocytes 0.3 10^3/uL (0.0-0.9); ABS Neutrophils 2.5 10^3/uL (1.5-7.6); ABS Nucleated RBC 0.01 10^3/ul; Hematocrit 26.5 % (35-45); Lymphocyte % 17.4 %; Mean Corpuscular Hemoglobin 34.2 pg (27-33); Mean Corpuscular Hgb Conc 33.9 g/dL (31-36); Mean Corpuscular Volume 101.1 fL (80-97); Mean Platelet Volume 7.7 fL (7.5-11.2); Nucleated Red Blood Cells % 0.3 %/100WBC (0.0-0.8); Platelet Count 122 10^3/uL (150-450); Red Blood Count 2.62 10^6/uL (3.63-4.92); Red Cell Distribution Width 21.3 % (12-17); White Blood Count 3.5 10^3/uL (3.8-11.8)
[2024-04-15] MEDS: Potassium Chloride LIQUID 20 MEQ/15 ML LIQUID PO ONE (17:38)
[2024-04-15 19:26] LABS: Magnesium 1.7 mg/dL (1.9-2.7)
[2024-04-15] MEDS: Potassium Chloride LIQUID 20 MEQ/15 ML LIQUID PO SCH (21:36)
[2024-04-17 06:45] LABS: Calcium 7.8 mg/dL (8.6-10.3); Creatinine, Serum 0.46 mg/dL (0.51-0.95); Potassium 3.5 mmol/L (3.5-5.0); eGFR CKD-EPI 99.1 (>60)
[2024-04-19 05:16] VITALS: BP 127/83
[2024-04-19 05:45] LABS: ABS Eosinophils 0.1 10^3/uL (0.0-0.5); ABS Lymphocytes 0.6 10^3/uL (1.0-4.8); ABS Monocytes 0.3 10^3/uL (0.0-0.9); ABS Nucleated RBC 0.01 10^3/ul; Eosinophil % 1.9 %; Hemoglobin 8.4 g/dL (11.5-14.3); Lymphocyte % 21.5 %; Mean Corpuscular Hemoglobin 34.1 pg (27-33); Mean Corpuscular Hgb Conc 33.6 g/dL (31-36); Mean Corpuscular Volume 101.5 fL (80-97); Mean Platelet Volume 8.3 fL (7.5-11.2); Nucleated Red Blood Cells % 0.3 %/100WBC (0.0-0.8); Platelet Count 140 10^3/uL (150-450); Red Blood Count 2.46 10^6/uL (3.63-4.92); Red Cell Distribution Width 21.2 % (12-17)
[2024-04-19 06:14] LABS: Albumin 2.9 g/dL (3.2-5.2); Albumin/Globulin Ratio 1.3 (1-3); Calcium 8.5 mg/dL (8.6-10.3); Creatinine, Serum 0.53 mg/dL (0.51-0.95); Globulin 2.2 g/dL (2-4); Potassium 3.6 mmol/L (3.5-5.0); Total Bilirubin 0.5 mg/dL (0.2-1.0); Total Protein 5.1 g/dL (6.4-8.9); eGFR CKD-EPI 95.8 (>60)
== END 2024-04-19 11:50 | disposition home or self-care (01) | DRG 91 ==
LOC: PMRU 04-07 11:53
PROVIDERS: ADMIT Physical Medicine & Rehabilitation; ATTEND Physical Medicine & Rehabilitation